=== PATIENT | male | born 1975 | race Caucasian/White ===

== ENCOUNTER → 2021-02-09 08:26 | Outpatient (BNVA) | payer MEDICARE, SELFPAY | PROVIDERS: Visit Provider Internal Medicine | DX: M06.9 Rheumatoid arthritis, unspecified (principal); M81.0 Age-related osteoporosis without current pathological fracture; R06.00 Dyspnea, unspecified; Z79.899 Other long term (current) drug therapy; Z11.59 Encounter for screening for other viral diseases; Z11.1 Encounter for screening for respiratory tuberculosis; Z87.891 Personal history of nicotine dependence | CPT/HCPCS: 36415; 71046; 73120; 73560; 80053; 81003; 85025; 85651; 86140; 86200; 86431; 86480; 86704; 86803; 87340; 99204 ==

== ENCOUNTER 2021-02-09 10:14 | Outpatient (CLI) | payer MEDICARE, SELFPAY ==
--- NOTE | 2021-02-09 10:23 | XR_ITS ---
WS: [email or web address] Exam: XR hand RT 2V 52779 Date/Time of Exam: 02/09/2021 10:30 AM Reason For Exam: M81.0 - Age-related osteoporosis without current patholog... No fracture or dislocation. Minimal degenerative change in the IP joints. Old scaphoid fracture with a single orthopedic screw in place. Plate and screw fixation of a healed fracture of the distal radiu s. Degenerative changes in the intercarpal joints. No soft tissue foreign bodies are seen. XR/XR hand RT 2V [id number] IMPRESSION: 1. Degenerative changes of the hand as noted above. 2. No fracture or dislocation. Old fractures of the scaphoid and distal radius.
--- NOTE | 2021-02-09 10:23 | XR_ITS ---
WS: [email or web address] Exam: XR hand LT 2V [id number] Date/Time of Exam: 02/09/2021 10:30 AM Reason For Exam: M81.0 - Age-related osteoporosis without current patholog... No fracture or dislocation. Joint structures are well-maintained. No soft tissue foreign bodies. XR/XR hand LT 2V 22489 IMPRESSION: 1. Negative left hand.
--- NOTE | 2021-02-09 10:23 | XR_ITS ---
WS: [email or web address] Exam: XR knee RT 1-2V 03100 Date/Time of Exam: 02/09/2021 10:30 AM Reason For Exam: M81.0 - Age-related osteoporosis without current patholog... No fracture or dislocation noted. Articular relationships are intact. No joint effusion. XR/XR knee RT 1-2V 46475 Impression: Normal right knee Kellgren-Raymond Classification: 0
--- NOTE | 2021-02-09 10:23 | XR_ITS ---
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 The lungs are hyperinflated and clear. Normal cardiomediastinal structures. No pleural effusions. Old healed single high-grade compression fracture of the lower T-spine noted without obvious posterior d isplacement. XR/XR chest 2V* [id number] IMPRESSION: 1. No acute cardiopulmonary finding.
--- NOTE | 2021-02-09 10:23 | XR_ITS ---
WS: [email or web address] Exam: XR knee LT 1-2V 05040 Date/Time of Exam: 02/09/2021 10:30 AM Reason For Exam: M81.0 - Age-related osteoporosis without current patholog... No fracture or dislocation noted. Articular relationships are intact. No joint effusion. XR/XR knee LT 1-2V 95354 Impression: Normal left knee Kellgren-Raymond Classification: 0
[2021-02-09 11:06] LABS: Add Urine Microscopic? NO; Charge for UA Resulting for Rev
[2021-02-09 11:16] LABS: Bilirubin Urine Neg (Negative); Blood Urine Neg (Negative); Glucose Urine UA Norm (Normal); Ketones Urine Negative (Negative); Leukocyte Esterase Urine Negative (Negative); Nitrate Urine Negative (Negative); Protein Urine Neg (Negative); Urine Appearance Clear (CLEAR); Urine Color Yellow (Yellow); Urobilinogen Urine Norm (Negative); pH Urine 7 (5-7)
[2021-02-09 11:20] LABS: Basophils # 0.1 10^3/uL (0.0-0.1); Eosinophils # 0.2 10^3/uL (0.0-0.8); Eosinophils % 2.4 %; Hemoglobin 15.4 g/dL (11.7-16.6); Lymphocytes # 0.9 10^3/uL (0.8-4.8); Lymphocytes % 10.9 %; Mean Corpuscular HGB Conc 33.5 g/dL (30.0-36.0); Mean Corpuscular Hemoglobin 34.6 pg (28.0-34.0); Mean Corpuscular Volume 103.4 fl (80-94); Monocytes # 0.7 10^3/uL (0.2-0.9); Neutrophils # 5.98 10^3/uL (1.8-7.7); Neutrophils % 75.9 %; Nucleated Red Blood Cells % 0 %; Platelet Count 223 10^3/cmm (130-400); Red Blood Count 4.45 10^6/uL (4.1-5.3); Red Cell Distribution Width 11.5 % (12.1-15.1); White Blood Count 7.9 10^3/uL (4.0-10.0)
[2021-02-09 11:44] LABS: Alanine Aminotransferase 9 U/L (0-41); Albumin Level 4.7 g/dL (3.5-5.2); Alkaline Phosphatase 61 IU/L (40-130); Anion Gap 18.2 (5-19); Aspartate Amino Transferase 14 U/L (0-40); Blood Urea Nitrogen 12 mg/dL (6-20); C Reactive Protein 0.6 mg/L (0.0-4.9); Calcium 8.6 mg/dL (8.5-10.5); Carbon Dioxide 23 mmol/L (22-29); Chloride 104 mmol/L (98-107); Globulin 1.8 g/dL (1.3-4.6); Glomerular Filtration Rate 90.8 mL/min (90-130); Glucose 86 mg/dL (65-115); Osmolality Calculated 291 mOsm/kg (285-295); Potassium 4.2 mmol/L (3.5-5.1); Sodium 141 mmol/L (136-145); Total Bilirubin 0.7 mg/dL (0.15-1.2); Total Protein 6.5 g/dL (6.6-8.7)
[2021-02-09 12:30] LABS: Hepatitis B Surface Antigen Non-Reactive (Nonreactive); Hepatitis C Virus Antibody Non-Reactive (Nonreactive)
[2021-02-09 12:33] LABS: Hepatitis B Core AB, Total Non-Reactive (Nonreactive)
[2021-02-10 13:18] LABS: Cyclic Citrullinated Peptide <16 UNITS
[2021-02-11 11:57] LABS: Erythrocyte Sedimentation Rate 2 mm/hr (0-10)
[2021-02-11 15:42] LABS: Quantiferon Mitogen >10.00 IU/mL; Quantiferon Nil 0.01 IU/mL; Quantiferon TB Gold NEGATIVE (NEGATIVE)
== END 2021-02-09 10:15 | disposition home or self-care (01) ==
PROVIDERS: Visit Provider Internal Medicine
DX: M81.0 Age-related osteoporosis without current pathological fracture (principal); R06.00 Dyspnea, unspecified; Z79.899 Other long term (current) drug therapy; Z11.59 Encounter for screening for other viral diseases; Z11.1 Encounter for screening for respiratory tuberculosis
CPT/HCPCS: 36415; 71046; 73120; 73560; 80053; 81003; 85025; 85651; 86140; 86200; 86431; 86480; 86704; 86803; 87340

== ENCOUNTER → 2021-03-19 10:24 | Outpatient (BNVA) | payer MEDICARE, SELFPAY | PROVIDERS: Visit Provider Internal Medicine | DX: M06.9 Rheumatoid arthritis, unspecified (principal); D75.89 Other specified diseases of blood and blood-forming organs; M81.0 Age-related osteoporosis without current pathological fracture; Z87.891 Personal history of nicotine dependence; Z79.899 Other long term (current) drug therapy | CPT/HCPCS: 99214 ==

== ENCOUNTER 2021-04-27 08:48 | Outpatient (CLI) | payer MEDICARE, SELFPAY ==
[2021-04-27 09:10] VITALS: BP 132/85; PULSE 70; RESP 18; TEMP 37.2; O2SAT 99
[2021-04-27 09:35] LABS: Basophils # 0.1 10^3/uL (0.0-0.1); Basophils % 0.8 %; Eosinophils # 0.2 10^3/uL (0.0-0.8); Eosinophils % 2.6 %; Hematocrit 42.3 % (42.0-52.0); Hemoglobin 14.3 g/dL (11.7-16.6); Lymphocytes # 0.7 10^3/uL (0.8-4.8); Lymphocytes % 9.1 %; Mean Corpuscular HGB Conc 33.8 g/dL (30.0-36.0); Mean Corpuscular Volume 100.7 fl (80-94); Monocytes # 0.6 10^3/uL (0.2-0.9); Monocytes % 8.1 %; Neutrophils # 5.94 10^3/uL (1.8-7.7); Neutrophils % 78.6 %; Nucleated Red Blood Cells % 0 %; Platelet Count 213 10^3/cmm (130-400); Red Cell Distribution Width 12.2 % (12.1-15.1); White Blood Count 7.6 10^3/uL (4.0-10.0)
[2021-04-27] MEDS: acetaminophen 325 mg Tablet 650 MG PO (09:38)
[2021-04-27] MEDS: sodium chloride 0.9% 250 ML 50 ML IV (09:38)
[2021-04-27] MEDS: diphenhydrAMINE 50 mg/mL SDV 1mL 25 MG IV (09:39)
[2021-04-27] MEDS: rituximab 1,000 MG in sodium chloride 0.9% 250 ML, primary tubing onc 1 EACH 90 MG IV (09:47)
[2021-04-27 10:07] LABS: Alanine Aminotransferase 9 U/L (0-41); Albumin Level 4.5 g/dL (3.5-5.2); Alkaline Phosphatase 65 IU/L (40-130); Blood Urea Nitrogen 15 mg/dL (6-20); Calcium 9.1 mg/dL (8.5-10.5); Carbon Dioxide 24 mmol/L (22-29); Chloride 106 mmol/L (98-107); Globulin 1.9 g/dL (1.3-4.6); Glomerular Filtration Rate 121.4 mL/min (90-130); Glucose 109 mg/dL (65-115); Osmolality Calculated 289 mOsm/kg (285-295); Sodium 139 mmol/L (136-145); Total Bilirubin 0.4 mg/dL (0.15-1.2); Total Protein 6.4 g/dL (6.6-8.7)
[2021-04-27 10:10] LABS: Anion Gap 13.4 (5-19); Aspartate Amino Transferase 16 U/L (0-40); Potassium 4.4 mmol/L (3.5-5.1)
[2021-04-27 10:16] VITALS: BP 122/73; PULSE 66; RESP 18; TEMP 37.2; O2SAT 99
[2021-04-27 10:53] VITALS: BP 124/73; PULSE 64; RESP 18; TEMP 37.4; O2SAT 99
[2021-04-27 11:56] VITALS: BP 122/78; PULSE 70; RESP 18; TEMP 37.1; O2SAT 98
== END 2021-04-27 08:49 | disposition home or self-care (01) ==
PROVIDERS: Referring Provider Internal Medicine; Visit Provider Internal Medicine Rheumatology
DX: M05.79 Rheumatoid arthritis with rheumatoid factor of multiple sites without organ or systems involvement (principal); Z79.899 Other long term (current) drug therapy
CPT/HCPCS: 80053; 85025; 86140; 96365; 96366; 96375; J1200; J2930; J7050; J9312

== ENCOUNTER 2021-05-11 08:41 | Outpatient (CLI) | payer MEDICARE, SELFPAY ==
[2021-05-11 09:05] VITALS: BP 124/85; PULSE 66; RESP 18; TEMP 37.1; O2SAT 99
[2021-05-11] MEDS: acetaminophen 325 mg Tablet 650 MG PO (09:23)
[2021-05-11] MEDS: sodium chloride 0.9% 250 ML 50 ML IV (09:25)
[2021-05-11] MEDS: diphenhydrAMINE 50 mg/mL SDV 1mL 25 MG IV (09:27)
[2021-05-11] MEDS: rituximab 1,000 MG in sodium chloride 0.9% 250 ML, primary tubing onc 1 EACH 90 MG IV (09:35)
[2021-05-11 09:57] VITALS: BP 112/70; PULSE 57; RESP 16; TEMP 37.3; O2SAT 99
[2021-05-11 10:33] VITALS: BP 113/73; PULSE 53; RESP 18; TEMP 37.1; O2SAT 99
[2021-05-11 11:34] VITALS: BP 107/67; PULSE 66; RESP 18; TEMP 37; O2SAT 98
== END 2021-05-11 08:42 | disposition home or self-care (01) ==
PROVIDERS: Referring Provider Internal Medicine; Visit Provider Internal Medicine Medical Oncology
DX: M05.79 Rheumatoid arthritis with rheumatoid factor of multiple sites without organ or systems involvement (principal)
CPT/HCPCS: 96365; 96366; 96375; J1200; J2930; J7050; J9312

== ENCOUNTER → 2021-07-29 12:33 | Outpatient (BNVA) | payer MEDICARE, SELFPAY | PROVIDERS: Visit Provider Otolaryngology | DX: M25.361 Other instability, right knee (principal); M25.561 Pain in right knee; Z87.09 Personal history of other diseases of the respiratory system; J34.2 Deviated nasal septum | CPT/HCPCS: 73560; 73565; 99203 ==

== ENCOUNTER 2021-08-12 06:00 | Outpatient (RCR) | payer MEDICARE, SELFPAY | END 2021-09-03 23:59 | disposition home or self-care (01) | LOC: SPT 06:00 | PROVIDERS: Referring Provider Orthopaedic Surgery; Visit Provider Orthopaedic Surgery | DX: M25.561 Pain in right knee (principal) | CPT/HCPCS: 97110; 97161 ==

== ENCOUNTER 2021-08-17 15:05 | Outpatient (CLI) | payer MEDICARE, SELFPAY ==
[2021-08-17 15:53] LABS: Basophils # 0.1 10^3/uL (0.0-0.1); Basophils % 0.8 %; Eosinophils # 0.2 10^3/uL (0.0-0.8); Eosinophils % 2.7 %; Hematocrit 40.8 % (42.0-52.0); Hemoglobin 14.7 g/dL (11.7-16.6); Lymphocytes % 15.8 %; Mean Corpuscular Hemoglobin 33.1 pg (28.0-34.0); Mean Corpuscular Volume 91.9 fl (80-94); Mean Platelet Volume 10.4 fL (7.4-10.4); Monocytes # 0.6 10^3/uL (0.2-0.9); Monocytes % 9.4 %; Neutrophils # 4.55 10^3/uL (1.8-7.7); Nucleated Red Blood Cells % 0 %; Platelet Count 224 10^3/cmm (130-400); Red Blood Count 4.44 10^6/uL (4.1-5.3); Red Cell Distribution Width 11.8 % (12.1-15.1); White Blood Count 6.4 10^3/uL (4.0-10.0)
[2021-08-17 16:18] LABS: Alanine Aminotransferase 12 U/L (0-41); Albumin Level 4.3 g/dL (3.5-5.2); Alkaline Phosphatase 57 IU/L (40-130); Anion Gap 15.6 (5-19); Aspartate Amino Transferase 17 U/L (0-40); Blood Urea Nitrogen 20 mg/dL (6-20); Calcium 8.9 mg/dL (8.5-10.5); Carbon Dioxide 22 mmol/L (22-29); Chloride 104 mmol/L (98-107); Globulin 2.1 g/dL (1.3-4.6); Glomerular Filtration Rate 90.8 mL/min (90-130); Glucose 110 mg/dL (65-115); Osmolality Calculated 289 mOsm/kg (285-295); Potassium 3.6 mmol/L (3.5-5.1); Sodium 138 mmol/L (136-145); Total Bilirubin 0.5 mg/dL (0.15-1.2); Total Protein 6.4 g/dL (6.6-8.7)
[2021-08-17 17:04] LABS: Erythrocyte Sedimentation Rate 1 mm/hr (0-10)
== END 2021-08-17 15:06 | disposition home or self-care (01) ==
PROVIDERS: Visit Provider Internal Medicine
DX: M06.9 Rheumatoid arthritis, unspecified (principal)
CPT/HCPCS: 36415; 80053; 85025; 85651; 86140

== ENCOUNTER → 2021-09-01 14:51 | Outpatient (BNVA) | payer MEDICARE, SELFPAY | PROVIDERS: Visit Provider Internal Medicine | DX: M06.9 Rheumatoid arthritis, unspecified (principal); M25.361 Other instability, right knee | CPT/HCPCS: 99214 ==

== ENCOUNTER 2021-10-05 10:36 | Outpatient (CLI) | payer MEDICARE, SELFPAY ==
[2021-10-05 11:03] VITALS: BP 104/72; PULSE 66; RESP 18; TEMP 36.8; O2SAT 97
[2021-10-05 11:08] LABS: Basophils # 0.1 10^3/uL (0.0-0.1); Basophils % 1.4 %; Eosinophils # 0.3 10^3/uL (0.0-0.8); Eosinophils % 4.8 %; Hematocrit 44.1 % (42.0-52.0); Hemoglobin 15.3 g/dL (11.7-16.6); Lymphocytes # 1.1 10^3/uL (0.8-4.8); Lymphocytes % 18.6 %; Mean Corpuscular HGB Conc 34.7 g/dL (30.0-36.0); Mean Corpuscular Hemoglobin 32.6 pg (28.0-34.0); Mean Platelet Volume 10.1 fL (7.4-10.4); Monocytes # 0.7 10^3/uL (0.2-0.9); Monocytes % 11.1 %; Neutrophils # 3.71 10^3/uL (1.8-7.7); Neutrophils % 63.1 %; Nucleated Red Blood Cells % 0 %; Platelet Count 220 10^3/cmm (130-400); Red Blood Count 4.69 10^6/uL (4.1-5.3); Red Cell Distribution Width 11.9 % (12.1-15.1); White Blood Count 5.9 10^3/uL (4.0-10.0)
[2021-10-05] MEDS: sodium chloride 0.9% 250 ML 50 ML IV (11:24)
[2021-10-05] MEDS: acetaminophen 325 mg Tablet 650 MG PO (11:25)
[2021-10-05] MEDS: diphenhydrAMINE 50 mg/mL SDV 1mL 25 MG IVP (11:26)
[2021-10-05 11:28] LABS: Alanine Aminotransferase 26 U/L (0-41); Albumin Level 4.2 g/dL (3.5-5.2); Alkaline Phosphatase 80 IU/L (40-130); Anion Gap 14.1 (5-19); Aspartate Amino Transferase 23 U/L (0-40); Blood Urea Nitrogen 18 mg/dL (6-20); Calcium 8.9 mg/dL (8.5-10.5); Carbon Dioxide 24 mmol/L (22-29); Chloride 105 mmol/L (98-107); Glomerular Filtration Rate 90.4 mL/min (90-130); Glucose 116 mg/dL (65-115); Osmolality Calculated 291 mOsm/kg (285-295); Potassium 4.1 mmol/L (3.5-5.1); Sodium 139 mmol/L (136-145); Total Bilirubin 0.5 mg/dL (0.15-1.2); Total Protein 6.2 g/dL (6.6-8.7)
[2021-10-05] MEDS: rituximab 1,000 MG in sodium chloride 0.9% 250 ML, primary tubing onc 1 EACH 90 MG IV (11:33)
[2021-10-05 12:01] VITALS: BP 114/80; PULSE 57; RESP 18; TEMP 36.7; O2SAT 97
[2021-10-05 12:34] VITALS: BP 115/75; PULSE 61; RESP 18; TEMP 36.7; O2SAT 99
[2021-10-05 13:36] VITALS: BP 102/64; PULSE 66; RESP 18; TEMP 36.6; O2SAT 97
== END 2021-10-05 10:37 | disposition home or self-care (01) ==
PROVIDERS: Referring Provider Internal Medicine; Visit Provider Internal Medicine
DX: M05.79 Rheumatoid arthritis with rheumatoid factor of multiple sites without organ or systems involvement (principal); Z79.899 Other long term (current) drug therapy
CPT/HCPCS: 80053; 85025; 86140; 96365; 96366; 96375; J1200; J2930; J7050; J9312

== ENCOUNTER 2021-10-19 10:41 | Outpatient (CLI) | payer MEDICARE, SELFPAY ==
[2021-10-19 10:48] VITALS: BP 119/78; PULSE 77; RESP 18; TEMP 36.7; O2SAT 98
[2021-10-19] MEDS: sodium chloride 0.9% 250 ML 50 ML IV (11:36)
[2021-10-19] MEDS: acetaminophen 325 mg Tablet 650 MG PO (11:37)
[2021-10-19] MEDS: diphenhydrAMINE 50 mg/mL SDV 1mL 25 MG IVP (11:38)
[2021-10-19] MEDS: rituximab 1,000 MG in sodium chloride 0.9% 250 ML, primary tubing onc 1 EACH 90 MG IV (11:45)
[2021-10-19 12:15] VITALS: BP 100/63; PULSE 60; RESP 18; TEMP 36.8; O2SAT 97
[2021-10-19 12:43] VITALS: BP 114/69; PULSE 59; RESP 18; TEMP 36.6; O2SAT 98
[2021-10-19 13:55] VITALS: BP 112/69; PULSE 67; RESP 18; TEMP 36.7; O2SAT 97
== END 2021-10-19 10:42 | disposition home or self-care (01) ==
PROVIDERS: Visit Provider Internal Medicine
DX: M05.79 Rheumatoid arthritis with rheumatoid factor of multiple sites without organ or systems involvement (principal)
CPT/HCPCS: 96365; 96366; 96375; J1200; J2930; J7050; J9312

== ENCOUNTER → 2021-12-14 14:35 | Outpatient (BNVA) | payer MEDICARE, SELFPAY | PROVIDERS: Visit Provider Internal Medicine | DX: M06.9 Rheumatoid arthritis, unspecified (principal); M25.361 Other instability, right knee | CPT/HCPCS: 99214 ==

== ENCOUNTER 2022-02-10 08:56 | Outpatient (CLI) | payer MEDICARE, SELFPAY ==
[2022-02-10 09:01] VITALS: BP 104/71; PULSE 72; RESP 16; TEMP 36.7; O2SAT 98
[2022-02-10 09:32] LABS: Basophils # 0.1 10^3/uL (0.0-0.1); Basophils % 1.1 %; Eosinophils # 0.2 10^3/uL (0.0-0.8); Eosinophils % 4.3 %; Hematocrit 43.8 % (42.0-52.0); Hemoglobin 14.4 g/dL (11.7-16.6); Lymphocytes # 0.9 10^3/uL (0.8-4.8); Lymphocytes % 15.6 %; Mean Corpuscular HGB Conc 32.9 g/dL (30.0-36.0); Mean Corpuscular Hemoglobin 32.3 pg (28.0-34.0); Mean Corpuscular Volume 98.2 fl (80-94); Mean Platelet Volume 9.7 fL (7.4-10.4); Monocytes # 0.4 10^3/uL (0.2-0.9); Monocytes % 7.9 %; Neutrophils # 3.93 10^3/uL (1.8-7.7); Neutrophils % 70.6 %; Nucleated Red Blood Cells % 0 %; Platelet Count 244 10^3/cmm (130-400); Red Blood Count 4.46 10^6/uL (4.1-5.3); Red Cell Distribution Width 12.4 % (12.1-15.1); White Blood Count 5.6 10^3/uL (4.0-10.0)
[2022-02-10] MEDS: acetaminophen 325 mg Tablet 650 MG PO (09:43)
[2022-02-10] MEDS: sodium chloride 0.9% 250 ML 50 ML IV (09:43)
[2022-02-10] MEDS: diphenhydrAMINE 50 mg/mL SDV 1mL 25 MG IVP (09:45)
[2022-02-10] MEDS: rituximab 1,000 MG in sodium chloride 0.9% 250 ML, primary tubing onc 1 EACH 37.5 MG IV (09:55)
[2022-02-10 10:14] LABS: Alanine Aminotransferase 22 U/L (0-41); Albumin Level 4.2 g/dL (3.5-5.2); Alkaline Phosphatase 72 U/L (40-130); Anion Gap 13.6 (5-19); Aspartate Amino Transferase 19 U/L (0-40); Blood Urea Nitrogen 12 mg/dL (6-20); Calcium 8.8 mg/dL (8.5-10.5); Carbon Dioxide 23 mmol/L (22-29); Chloride 106 mmol/L (98-107); Glomerular Filtration Rate 80.1 mL/min (90-130); Glucose 135 mg/dL (65-115); Osmolality Calculated 290 mOsm/kg (285-295); Potassium 3.6 mmol/L (3.5-5.1); Sodium 139 mmol/L (136-145); Total Bilirubin 0.3 mg/dL (0.15-1.2); Total Protein 6.2 g/dL (6.6-8.7)
[2022-02-10 10:24] VITALS: BP 99/65; PULSE 62; RESP 16; TEMP 36.7; O2SAT 99
[2022-02-10 10:57] VITALS: BP 109/74; PULSE 60; RESP 16; TEMP 36.4; O2SAT 98
[2022-02-10 11:28] VITALS: BP 111/73; PULSE 61; RESP 16; TEMP 36.8; O2SAT 99
[2022-02-10 13:34] VITALS: BP 114/74; PULSE 79; RESP 16; TEMP 36.9; O2SAT 97
== END 2022-02-10 08:57 | disposition home or self-care (01) ==
PROVIDERS: Referring Provider Internal Medicine; Visit Provider Neurological Surgery
DX: M06.9 Rheumatoid arthritis, unspecified (principal); M81.0 Age-related osteoporosis without current pathological fracture; M25.361 Other instability, right knee
CPT/HCPCS: 80053; 85025; 86140; J1200; J2930; J7050; J9312

== ENCOUNTER 2022-02-24 08:39 | Outpatient (CLI) | payer MEDICARE, SELFPAY ==
[2022-02-24 08:45] VITALS: BP 109/71; PULSE 76; RESP 18; TEMP 37.1; O2SAT 99
[2022-02-24] MEDS: sodium chloride 0.9% 250 ML 50 ML IV (09:11)
[2022-02-24] MEDS: acetaminophen 325 mg Tablet 650 MG PO (09:11)
[2022-02-24] MEDS: diphenhydrAMINE 50 mg/mL SDV 1mL 25 MG IVP (09:12)
[2022-02-24] MEDS: rituximab 1,000 MG in sodium chloride 0.9% 250 ML, primary tubing onc 1 EACH 37.5 MG IV (09:21)
[2022-02-24 10:17] VITALS: BP 112/70; PULSE 61; RESP 18; TEMP 36.9; O2SAT 99
[2022-02-24 11:55] VITALS: BP 127/76; PULSE 61; RESP 16; TEMP 36.7; O2SAT 97
[2022-02-24 13:09] VITALS: BP 123/76; PULSE 70; RESP 16; TEMP 37.4; O2SAT 99
== END 2022-02-24 08:40 | disposition home or self-care (01) ==
LOC: ONCMED 08:39
PROVIDERS: PCP Family Medicine; Visit Provider Internal Medicine
DX: M05.79 Rheumatoid arthritis with rheumatoid factor of multiple sites without organ or systems involvement (principal)
CPT/HCPCS: 96365; 96366; 96375; J1200; J2930; J7050; J9312

== ENCOUNTER → 2022-05-31 12:50 | Outpatient (BNVA) | payer MEDICARE, SELFPAY | PROVIDERS: PCP Family Medicine; Visit Provider Internal Medicine | DX: M06.9 Rheumatoid arthritis, unspecified (principal); Z79.899 Other long term (current) drug therapy; M25.519 Pain in unspecified shoulder | CPT/HCPCS: 99213 ==

== ENCOUNTER 2022-06-01 14:53 | Outpatient (CLI) | payer MEDICARE, SELFPAY ==
[2022-06-01 15:35] LABS: Basophils # 0.1 10^3/uL (0.0-0.1); Basophils % 0.8 %; Eosinophils # 0.2 10^3/uL (0.0-0.8); Eosinophils % 2.1 %; Hematocrit 39.3 % (42.0-52.0); Hemoglobin 13.1 g/dL (11.7-16.6); Lymphocytes # 1.3 10^3/uL (0.8-4.8); Lymphocytes % 13.2 %; Mean Corpuscular HGB Conc 33.3 g/dL (30.0-36.0); Mean Corpuscular Hemoglobin 32.3 pg (28.0-34.0); Mean Corpuscular Volume 96.8 fl (80-94); Mean Platelet Volume 9.8 fL (7.4-10.4); Monocytes # 0.7 10^3/uL (0.2-0.9); Monocytes % 7.5 %; Neutrophils # 7.22 10^3/uL (1.8-7.7); Nucleated Red Blood Cells % 0 %; Platelet Count 275 10^3/cmm (130-400); Red Blood Count 4.06 10^6/uL (4.1-5.3); Red Cell Distribution Width 12.7 % (12.1-15.1); White Blood Count 9.5 10^3/uL (4.0-10.0)
[2022-06-01 16:03] LABS: Alanine Aminotransferase 11 U/L (0-41); Albumin Level 3.9 g/dL (3.5-5.2); Alkaline Phosphatase 54 U/L (40-130); Aspartate Amino Transferase 18 U/L (0-40); Blood Urea Nitrogen 12 mg/dL (6-20); Calcium 8.9 mg/dL (8.5-10.5); Carbon Dioxide 27 mmol/L (22-29); Chloride 105 mmol/L (98-107); Globulin 2.2 g/dL (1.3-4.6); Glomerular Filtration Rate 80.1 mL/min (90-130); Glucose 94 mg/dL (65-115); Osmolality Calculated 290 mOsm/kg (285-295); Sodium 140 mmol/L (136-145); Total Bilirubin 0.2 mg/dL (0.15-1.2); Total Protein 6.1 g/dL (6.6-8.7)
[2022-06-01 16:06] LABS: Erythrocyte Sedimentation Rate 1 mm/hr (0-10)
[2022-06-01 16:12] LABS: Anion Gap 11.7 (5-19); Potassium 3.7 mmol/L (3.5-5.1)
== END 2022-06-01 14:54 | disposition home or self-care (01) ==
LOC: LAB 14:55
PROVIDERS: PCP Family Medicine; Visit Provider Internal Medicine
DX: M06.9 Rheumatoid arthritis, unspecified (principal); M81.0 Age-related osteoporosis without current pathological fracture; Z79.899 Other long term (current) drug therapy
CPT/HCPCS: 36415; 80053; 85025; 85651; 86140

== ENCOUNTER 2022-06-08 15:56 | Outpatient (CLI) | payer MEDICARE, SELFPAY ==
--- NOTE | 2022-06-08 16:12 | XR_ITS ---
WS: [email or web address] XR shoulder LT min 2V* [id number] REASON FOR EXAM: M81.0 - Age-related osteoporosis without current patholog... FINDINGS: Old healed fracture of the distal clavicle. The left acromioclavicular joint is intact and somewhat widened. Mild subchondral sclerosis and osteo phytosis. Mild narrowing of the glenohumeral joint with moderate subchondral sclerosis and cystic change and os teophytosis of the glenoid and humeral head. Moderate subchondral sclerosis and cystic change in the biceps tuberosity. No soft tissue abnormality. 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 Moderate rotator cuff tendon arthropathy.
--- NOTE | 2022-06-08 16:12 | XR_ITS ---
WS: [email or web address] XR shoulder RT min 2V* [id number] REASON FOR EXAM: M81.0 - Age-related osteoporosis without current patholog... FINDINGS: No fracture or focal bone lesion. The acromioclavicular joint is intact and relatively well-preserved. Mild subchondral sclerosis and s mall osteophytosis. Glenohumeral joint is intact and relatively well-preserved. Moderate sclerosis in the biceps tuberosity. No soft tissue abnormality. XR/XR shoulder RT min 2V* [id number] IMPRESSION: Mild osteoarthritis in the acromioclavicular joint. Moderate rotator cuff tendon arthropathy.
== END 2022-06-08 15:57 | disposition home or self-care (01) ==
PROVIDERS: PCP Family Medicine; Visit Provider Internal Medicine
DX: M81.0 Age-related osteoporosis without current pathological fracture (principal); M06.9 Rheumatoid arthritis, unspecified; M25.519 Pain in unspecified shoulder; M19.012 Primary osteoarthritis, left shoulder
CPT/HCPCS: 73030

== ENCOUNTER 2022-07-01 10:00 | Oncology outpatient (recurring) (ONCR) | payer MEDICARE, SELFPAY ==
[2022-06-17] MEDS: sodium chloride 0.9% 250 ML 100 ML IV (11:50)
[2022-06-17] MEDS: acetaminophen 325 mg Tablet 650 MG PO (11:50)
[2022-06-17] MEDS: diphenhydrAMINE 50 mg/mL SDV 1mL 25 MG IVP (11:50)
[2022-06-17] MEDS: rituximab-abbs 1,000 MG in sodium chloride 0.9% 500 ML 60 MG IV (12:17)
[2022-06-17 12:20] VITALS: BP 95/60; PULSE 52; TEMP 37.2; O2SAT 99
[2022-06-17 12:50] VITALS: BP 91/56; PULSE 54; TEMP 37.4; O2SAT 99
[2022-06-17 13:25] VITALS: BP 97/62; PULSE 54; TEMP 36.8; O2SAT 99
[2022-06-17 13:56] VITALS: BP 98/61; PULSE 60; TEMP 36.9; O2SAT 99
[2022-06-17 16:07] VITALS: BP 99/58; PULSE 65; TEMP 37.3; O2SAT 99
== END 2022-07-04 23:59 | disposition home or self-care (01) ==
PROVIDERS: PCP Family Medicine; Visit Provider Internal Medicine
DX: Z53.9 Procedure and treatment not carried out, unspecified reason (principal)
CPT/HCPCS: 96375; 96413; 96415; J1200; J2930; J7040; J7050; Q5115

== ENCOUNTER → 2022-07-15 09:33 | Outpatient (BNVA) | payer MEDICARE, SELFPAY | PROVIDERS: PCP Family Medicine; Visit Provider Internal Medicine | DX: M25.512 Pain in left shoulder (principal) | CPT/HCPCS: 20605; 99213; J1030 ==

== ENCOUNTER → 2022-09-14 10:10 | Outpatient (BNVA) | payer MEDICARE, SELFPAY | PROVIDERS: PCP Family Medicine; Visit Provider Internal Medicine | DX: M06.9 Rheumatoid arthritis, unspecified (principal); M81.0 Age-related osteoporosis without current pathological fracture; M25.519 Pain in unspecified shoulder | CPT/HCPCS: 99214 ==

== ENCOUNTER 2022-10-12 10:39 | Oncology outpatient (recurring) (ONCR) | payer MEDICARE, SELFPAY ==
[2022-10-12] MEDS: sodium chloride 0.9% 250 ML 100 ML IV (11:42)
[2022-10-12] MEDS: acetaminophen 325 mg Tablet 650 MG PO (11:43)
[2022-10-12] MEDS: diphenhydrAMINE 50 mg/mL SDV 1mL 25 MG IVP (11:44)
[2022-10-12] MEDS: methylPREDNISolone sod succ 125 mg SDV IVP (11:47)
[2022-10-12] MEDS: rituximab 1,000 MG in sodium chloride 0.9% 500 ML 60 MG IV (12:09)
[2022-10-12 12:10] VITALS: BP 115/50; PULSE 50; RESP 17; TEMP 36.6; O2SAT 100
[2022-10-12 12:40] VITALS: BP 111/61; PULSE 57; RESP 17; TEMP 37; O2SAT 100
[2022-10-12 13:10] VITALS: BP 102/60; PULSE 58; RESP 17; TEMP 36.9; O2SAT 99
[2022-10-12 13:40] VITALS: BP 110/66; PULSE 69; RESP 17; TEMP 36.9; O2SAT 99
[2022-10-12 15:55] VITALS: BP 124/64; PULSE 63; RESP 16; TEMP 36.9; O2SAT 98
== END 2022-10-12 23:59 | disposition home or self-care (01) ==
PROVIDERS: PCP Family Medicine; Visit Provider Internal Medicine
DX: M06.9 Rheumatoid arthritis, unspecified
CPT/HCPCS: 96375; 96413; 96415; J1200; J2930; J7040; J7050; J9312

== ENCOUNTER 2022-10-26 10:00 | Oncology outpatient (recurring) (ONCR) | payer MEDICARE, SELFPAY ==
[2022-10-26] MEDS: acetaminophen 325 mg Tablet 650 MG PO (09:49)
[2022-10-26] MEDS: sodium chloride 0.9% 250 ML 100 ML IV (09:50)
[2022-10-26] MEDS: methylPREDNISolone sod succ 125 mg SDV IVP (09:51)
[2022-10-26] MEDS: diphenhydrAMINE 50 mg/mL SDV 1mL 25 MG IVP (09:55)
[2022-10-26] MEDS: rituximab 1,000 MG in sodium chloride 0.9% 500 ML 60 MG IV (10:16)
[2022-10-26 10:50] VITALS: BP 126/77; PULSE 55; RESP 16; TEMP 36.7; O2SAT 99
[2022-10-26 11:25] VITALS: BP 117/70; PULSE 60; RESP 16; TEMP 36.4; O2SAT 99
[2022-10-26 11:55] VITALS: BP 108/68; PULSE 60; RESP 16; TEMP 36.7; O2SAT 98
[2022-10-26 14:15] VITALS: BP 126/76; PULSE 74; RESP 16; TEMP 37.1; O2SAT 99
== END 2022-11-04 23:59 | disposition home or self-care (01) ==
PROVIDERS: PCP Family Medicine; Visit Provider Internal Medicine
DX: M05.79 Rheumatoid arthritis with rheumatoid factor of multiple sites without organ or systems involvement (principal); Z51.12 Encounter for antineoplastic immunotherapy
CPT/HCPCS: 96375; 96413; 96415; J1200; J2930; J7040; J7050; J9312

== ENCOUNTER → 2023-01-20 15:33 | Outpatient (BNVA) | payer MEDICARE, SELFPAY | PROVIDERS: PCP Family Medicine; Visit Provider Internal Medicine | DX: M06.9 Rheumatoid arthritis, unspecified (principal); M25.519 Pain in unspecified shoulder; Z79.899 Other long term (current) drug therapy | CPT/HCPCS: 36415; 80053; 85025; 85651; 86140; 99214 ==

== ENCOUNTER 2023-02-17 08:24 | Oncology outpatient (recurring) (ONCR) | payer MEDICARE, SELFPAY ==
[2023-02-17] MEDS: acetaminophen 325 mg Tablet 650 MG PO (09:14)
[2023-02-17] MEDS: sodium chloride 0.9% 250 ML 75 ML IV (09:14)
[2023-02-17] MEDS: diphenhydrAMINE 50 mg/mL SDV 1mL 25 MG IVP (09:17)
[2023-02-17] MEDS: methylPREDNISolone sod succ 125 mg SDV IVP (09:21)
[2023-02-17] MEDS: rituximab 1,000 MG in sodium chloride 0.9% 500 ML 70 MG IV (09:57)
[2023-02-17 10:00] VITALS: BP 102/67; PULSE 64; TEMP 36.7; O2SAT 99
[2023-02-17 11:00] VITALS: BP 109/71; PULSE 67; RESP 18; TEMP 36.7; O2SAT 98
[2023-02-17 13:00] VITALS: BP 108/67; PULSE 74; TEMP 36.7; O2SAT 98
== END 2023-03-06 23:59 | disposition home or self-care (01) ==
PROVIDERS: PCP Family Medicine; Visit Provider Internal Medicine
DX: M06.9 Rheumatoid arthritis, unspecified (principal)
CPT/HCPCS: 96375; 96413; 96415; J1200; J2930; J7040; J7050; J9312

== ENCOUNTER 2023-03-31 07:54 | Oncology outpatient (recurring) (ONCR) | payer MEDICARE, SELFPAY ==
[2023-03-31 08:21] VITALS: BP 108/67; PULSE 65; RESP 16; TEMP 36.8; O2SAT 96
[2023-03-31 08:30] VITALS: BMI 26.7
[2023-03-31 08:42] LABS: Basophils # 0.1 10^3/uL (0.0-0.1); Eosinophils # 0.3 10^3/uL (0.0-0.8); Eosinophils % 3.1 %; Hematocrit 41.9 % (37-53); Lymphocytes # 1.1 10^3/uL (0.8-4.8); Lymphocytes % 11.4 %; Mean Corpuscular HGB Conc 33.9 g/dL (30-55); Mean Corpuscular Hemoglobin 32.6 pg (27-33); Mean Corpuscular Volume 96.3 fl (82-101); Mean Platelet Volume 9.6 fL (7.4-10.4); Monocytes # 0.9 10^3/uL (0.2-0.9); Monocytes % 9.5 %; Nucleated Red Blood Cells % 0 %; Platelet Count 260 10^3/cmm (157-399); Red Blood Count 4.35 10^6/uL (3.85-5.65); White Blood Count 9.18 10^3/uL (3.29-11.43)
[2023-03-31] MEDS: sodium chloride 0.9% 250 ML 75 ML IV (09:33)
[2023-03-31] MEDS: acetaminophen 325 mg Tablet 650 MG PO (09:35)
[2023-03-31] MEDS: diphenhydrAMINE 50 mg/mL SDV 1mL 25 MG IVP (09:35)
[2023-03-31] MEDS: methylPREDNISolone sod succ 125 mg SDV IV (09:38)
[2023-03-31] MEDS: rituximab 1,000 MG in sodium chloride 0.9% 500 ML 75 MG IV (10:17)
[2023-03-31 10:54] VITALS: BP 110/67; PULSE 61; RESP 16; TEMP 36.8; O2SAT 99
[2023-03-31 11:28] VITALS: BP 101/63; PULSE 57; RESP 16; TEMP 36.9; O2SAT 95
[2023-03-31 11:59] VITALS: BP 99/65; PULSE 58; RESP 16; TEMP 36.9; O2SAT 96
[2023-03-31 13:22] VITALS: BP 121/73; PULSE 73; RESP 16; TEMP 36.8; O2SAT 98
[2023-03-31 13:43] VITALS: BP 121/73; PULSE 73; RESP 16; TEMP 36.8; O2SAT 98
== END 2023-04-06 23:59 | disposition home or self-care (01) ==
LOC: ONCMED 07:55
PROVIDERS: PCP Family Medicine; Visit Provider Internal Medicine
DX: M06.9 Rheumatoid arthritis, unspecified (principal)
CPT/HCPCS: 85025; 96375; 96413; 96415; J1200; J2930; J7040; J7050; J9312

== ENCOUNTER 2023-05-12 12:04 | Outpatient (CLI) | payer MEDICARE, SELFPAY ==
--- NOTE | 2023-05-12 12:08 | MR_ITS ---
WS: [email or web address] MRI LEFT SHOULDER HISTORY: L SHOULDER TENDINITIS COMPARISON: Radiograph 06/08/2022 TECHNIQUE: Multiplanar sequences of the shoulder joint are submitted. Mild AC joint arthritis. No marrow edema. Small erosions distal clavicle. No subacromial impingement. No subacromial or subdeltoid fluid. Normal position of the biceps tendon. No os acromion. No rotator cuff muscle atrophy or edema. Subscapularis tendon is thickened and intermediate signal. T here is no tear but there is moderate coracohumeral encroachment upon the subscapularis tendon. Gleno humeral joint is narrowed. Loss of cartilage involving the glenoid. There is a small central cyst in the posterior labrum. The anterior labrum is not identified. There is a focal area of low signal in t he glenohumeral joint adjacent to where the labrum should be. This could potentially be an avulsed la bral now within the glenohumeral joint. No joint effusion. There is also mild thickening of the axill farrukh pouch. IMPRESSION: 1. No rotator cuff tendon tear. No muscle edema or atrophy. 2. Tendinopathy in the distal subscapularis tendon. There is mild coracohumeral encroachment upon th e subscapularis tendon. 3. Mild AC joint arthritis. 4. Anterior labrum is not identified in its normal position. Suspect this labrum may be avulsed and is now within the glenohumeral joint. 5. Additional changes suspicious for glenohumeral joint arthropathy and adhesive capsulitis.
== END 2023-05-12 12:05 | disposition home or self-care (01) ==
LOC: RAD 12:04
PROVIDERS: PCP Family Medicine; Visit Provider Family Medicine
DX: M19.012 Primary osteoarthritis, left shoulder (principal); M67.88 Other specified disorders of synovium and tendon, other site
CPT/HCPCS: 73221

== ENCOUNTER 2023-10-05 08:00 | Oncology outpatient (recurring) (ONCR) | payer MEDICARE, SELFPAY ==
[2023-10-05 08:53] VITALS: BP 114/73; PULSE 63; RESP 16; TEMP 36.7; O2SAT 99
[2023-10-05] MEDS: sodium chloride 0.9% 250 ML 75 ML IV (08:54)
[2023-10-05 08:56] LABS: Basophils # 0.1 10^3/uL (0.0-0.1); Basophils % 0.9 %; Eosinophils # 0.3 10^3/uL (0.0-0.8); Eosinophils % 3.2 %; Hematocrit 42.5 % (37-53); Lymphocytes # 1.2 10^3/uL (0.8-4.8); Lymphocytes % 15.2 %; Mean Corpuscular HGB Conc 33.2 g/dL (30-55); Mean Corpuscular Hemoglobin 32.5 pg (27-33); Mean Corpuscular Volume 97.9 fl (82-101); Mean Platelet Volume 9.6 fL (7.4-10.4); Monocytes # 0.5 10^3/uL (0.2-0.9); Monocytes % 6.9 %; Neutrophils # 5.76 10^3/uL (1.8-7.7); Neutrophils % 73.4 %; Nucleated Red Blood Cells % 0 %; Platelet Count 270 10^3/cmm (157-399); Red Blood Count 4.34 10^6/uL (3.85-5.65); Red Cell Distribution Width 12.1 % (12.1-15.1); White Blood Count 7.84 10^3/uL (3.29-11.43)
[2023-10-05] MEDS: acetaminophen 325 mg Tablet 650 MG PO (08:57)
[2023-10-05] MEDS: diphenhydrAMINE 50 mg/mL SDV 1mL 25 MG IVP (08:58)
[2023-10-05] MEDS: methylPREDNISolone sod succ 125 mg/2 mL INJ IVP (09:01)
[2023-10-05 09:15] LABS: Alanine Aminotransferase 11 U/L (0-41); Albumin Level 4.1 g/dL (3.5-5.2); Alkaline Phosphatase 77 U/L (40-130); Aspartate Amino Transferase 16 U/L (0-40); Creatinine Clr Calc Pharmacy 104.1607; Globulin 2.1 g/dL (1.3-4.6); Glomerular Filtration Rate 89.7 mL/min (90-130); Total Bilirubin 0.2 mg/dL (0.15-1.2); Total Protein 6.2 g/dL (6.6-8.7)
[2023-10-05 09:30] VITALS: BP 119/74; PULSE 57; RESP 16; TEMP 36.9; O2SAT 98
[2023-10-05] MEDS: rituximab 1,000 MG in sodium chloride 0.9% 500 ML 70 MG IV (09:30)
[2023-10-05 10:00] VITALS: BP 107/66; PULSE 65; RESP 16; TEMP 36.8; O2SAT 97
[2023-10-05 10:30] VITALS: BP 112/68; PULSE 71; RESP 16; TEMP 36.8; O2SAT 98
[2023-10-05 11:00] VITALS: BP 108/70; PULSE 67; RESP 16; TEMP 36.4; O2SAT 95
[2023-10-05 12:43] VITALS: BP 115/74; PULSE 81; RESP 16; O2SAT 98
== END 2023-10-05 23:59 | disposition home or self-care (01) ==
PROVIDERS: Internal Medicine Rheumatology; PCP Family Medicine; Visit Provider Internal Medicine
DX: M06.9 Rheumatoid arthritis, unspecified (principal); Z79.69 Long term (current) use of other immunomodulators and immunosuppressants
CPT/HCPCS: 73030; 80076; 82565; 85025; 86140; 96375; 96413; 96415; J1200; J2919; J7040; J7050; J9312

== ENCOUNTER 2023-10-19 07:53 | Oncology outpatient (recurring) (ONCR) | payer MEDICARE, SELFPAY ==
[2023-10-19 08:09] VITALS: BP 115/76; PULSE 64; RESP 18; TEMP 36.5; O2SAT 99
[2023-10-19] MEDS: sodium chloride 0.9% 250 ML 75 ML IV (08:21)
[2023-10-19] MEDS: acetaminophen 325 mg Tablet 650 MG PO (08:22)
[2023-10-19] MEDS: diphenhydrAMINE 50 mg/mL SDV 1mL 25 MG IVP (08:22)
[2023-10-19] MEDS: methylPREDNISolone sod succ 125 mg/2 mL INJ IVP (08:26)
[2023-10-19] MEDS: rituximab 1,000 MG in sodium chloride 0.9% 500 ML 60 MG IV (08:54)
[2023-10-19 09:00] VITALS: BP 100/69; PULSE 54; RESP 18; TEMP 36.6; O2SAT 99
[2023-10-19 09:30] VITALS: BP 105/68; PULSE 63; RESP 18; TEMP 36.4; O2SAT 99
[2023-10-19 10:00] VITALS: BP 96/64; PULSE 58; RESP 18; TEMP 36.2; O2SAT 98
[2023-10-19 10:30] VITALS: BP 98/68; PULSE 71; RESP 18; TEMP 36.3; O2SAT 99
[2023-10-19 12:32] VITALS: BP 118/82; PULSE 69; RESP 16; TEMP 36.6; O2SAT 99
== END 2023-11-05 23:59 | disposition home or self-care (01) ==
PROVIDERS: PCP Family Medicine; Visit Provider Internal Medicine
DX: Z79.899 Other long term (current) drug therapy (principal); M06.9 Rheumatoid arthritis, unspecified
CPT/HCPCS: 96375; 96413; 96415; J1200; J2919; J7040; J7050; J9312

== ENCOUNTER → 2023-11-10 10:28 | Outpatient (BNVA) | payer MEDICARE, SELFPAY | PROVIDERS: PCP Family Medicine; Visit Provider Internal Medicine Rheumatology | DX: M06.9 Rheumatoid arthritis, unspecified (principal); Z79.899 Other long term (current) drug therapy; M05.79 Rheumatoid arthritis with rheumatoid factor of multiple sites without organ or systems involvement; J84.9 Interstitial pulmonary disease, unspecified; Z71.85 Encounter for immunization safety counseling | CPT/HCPCS: 99204 ==

== ENCOUNTER 2024-03-26 09:00 | Oncology outpatient (recurring) (ONCR) | payer MEDICARE, SELFPAY ==
[2024-03-12] MEDS: sodium chloride 0.9% 250 ML 75 ML IV (08:30)
[2024-03-12] MEDS: acetaminophen 325 mg Tablet 650 MG PO (08:31)
[2024-03-12] MEDS: methylPREDNISolone sod succ 125 mg/2 mL INJ IVP (08:31)
[2024-03-12] MEDS: diphenhydrAMINE 50 mg/mL SDV 1mL 25 MG IVP (08:39)
[2024-03-12 08:41] LABS: Basophils # 0.1 10^3/uL (0.0-0.1); Basophils % 0.8 %; Eosinophils # 0.4 10^3/uL (0.0-0.8); Eosinophils % 3.5 %; Hematocrit 52.2 % (37-53); Lymphocytes # 1.6 10^3/uL (0.8-4.8); Lymphocytes % 14.1 %; Mean Corpuscular HGB Conc 32.8 g/dL (30-55); Mean Corpuscular Hemoglobin 31.6 pg (27-33); Mean Corpuscular Volume 96.5 fl (82-101); Mean Platelet Volume 9.7 fL (7.4-10.4); Monocytes # 0.8 10^3/uL (0.2-0.9); Monocytes % 7.3 %; Neutrophils % 73.7 %; Nucleated Red Blood Cells % 0 %; Platelet Count 314 10^3/cmm (157-399); Red Blood Count 5.41 10^6/uL (3.85-5.65); Red Cell Distribution Width 12.8 % (12.1-15.1); White Blood Count 11.13 10^3/uL (3.29-11.43)
[2024-03-12 08:59] LABS: Alanine Aminotransferase 10 U/L (0-41); Albumin Level 4.3 g/dL (3.5-5.2); Alkaline Phosphatase 81 U/L (40-130); C Reactive Protein 3.6 mg/L (0.0-4.9); Globulin 2.6 g/dL (1.3-4.6); Glomerular Filtration Rate 89.7 mL/min (90-130); Total Bilirubin 0.6 mg/dL (0.15-1.2); Total Protein 6.9 g/dL (6.6-8.7)
[2024-03-12 09:13] LABS: Aspartate Amino Transferase 21 U/L (0-40)
[2024-03-12 09:19] VITALS: BP 129/85; PULSE 73; RESP 17; O2SAT 98
[2024-03-12] MEDS: rituximab 1,000 MG in sodium chloride 0.9% 500 ML 65 MG IV (09:19)
[2024-03-12 10:21] VITALS: BP 119/79; PULSE 77; O2SAT 98
[2024-03-12 10:50] VITALS: BP 117/72; PULSE 84; RESP 16; O2SAT 95
[2024-03-12 12:24] VITALS: BP 115/76; PULSE 73; RESP 17; TEMP 36.3; O2SAT 97
[2024-03-26] VITALS (7 sets, daily range): BP systolic 103–125; BP diastolic 69–79; PULSE 55–74; RESP 6–17; TEMP 36.5–37.1; O2SAT 97–98
[2024-03-26] MEDS: diphenhydrAMINE 50 mg/mL SDV 1mL 25 MG IVP (10:13)
[2024-03-26] MEDS: acetaminophen 325 mg Tablet 650 MG PO (10:14)
[2024-03-26] MEDS: rituximab 1,000 MG in sodium chloride 0.9% 500 ML 70 MG IV (10:46)
== END 2024-04-06 23:59 | disposition home or self-care (01) ==
PROVIDERS: Internal Medicine Rheumatology; PCP Family Medicine; Visit Provider Internal Medicine
DX: Z53.9 Procedure and treatment not carried out, unspecified reason; M05.9 Rheumatoid arthritis with rheumatoid factor, unspecified; Z79.899 Other long term (current) drug therapy
CPT/HCPCS: 80076; 82565; 85025; 86140; 96375; 96413; 96415; J1200; J2919; J7040; J7050; J9312

== ENCOUNTER → 2024-05-03 15:32 | Outpatient (BNVA) | payer MEDICARE, SELFPAY | PROVIDERS: PCP Family Medicine; Visit Provider Family Medicine | DX: J84.9 Interstitial pulmonary disease, unspecified (principal) | CPT/HCPCS: 71046 ==

== ENCOUNTER → 2024-05-10 10:37 | Outpatient (BNVA) | payer MEDICARE, SELFPAY | PROVIDERS: PCP Family Medicine; Visit Provider Internal Medicine Rheumatology | DX: M05.79 Rheumatoid arthritis with rheumatoid factor of multiple sites without organ or systems involvement (principal); J84.9 Interstitial pulmonary disease, unspecified; Z79.899 Other long term (current) drug therapy; Z71.85 Encounter for immunization safety counseling; J40 Bronchitis, not specified as acute or chronic | CPT/HCPCS: 99215 ==

== ENCOUNTER 2024-06-05 16:01 | Outpatient (CLI) | payer MEDICARE, SELFPAY ==
--- NOTE | 2024-06-05 16:15 | CTR_ITS ---
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 Radiation optimization: All CT scans at this facility use at least one of these dose optimization techniques: automated exposure control; mA and/or kV adjustment per patient size (includes targeted exams where dose is matched to clinical indication); or iterative reconstruction. COMPARISON: CR XR chest 2V* [id number] 05/03/2024 3:36 PM RADIATION DOSE METRICS: Total DLP (mGy-cm): 314.21 FINDINGS: Lungs: Unremarkable. No consolidation. No masses. Pleural spaces: Unremarkable. No pneumothorax. No pleural effusion. Heart: Unremarkable. No cardiomegaly. No pericardial effusion. Coronary arteries: No coronary artery calcification. Lymph nodes: Unremarkable. No enlarged lymph nodes. Vasculature: Unremarkable. No aortic aneurysm. Bones/joints: Unremarkable. No acute fracture. Stable compression of a lower thoracic vertebral body. Soft tissues: Unremarkable. CT/CT chest con [id number] IMPRESSION: No acute findings.
== END 2024-06-05 16:02 | disposition home or self-care (01) ==
LOC: RAD 16:02
PROVIDERS: PCP Internal Medicine Rheumatology; Visit Provider Internal Medicine Rheumatology
DX: Z79.899 Other long term (current) drug therapy (principal); J40 Bronchitis, not specified as acute or chronic; R93.7 Abnormal findings on diagnostic imaging of other parts of musculoskeletal system
CPT/HCPCS: 71250

== ENCOUNTER 2024-07-25 10:30 | Oncology outpatient (recurring) (ONCR) | payer MEDICARE, SELFPAY ==
[2024-07-25] MEDS: methylPREDNISolone sod succ 125 mg/2 mL INJ IVP (12:04)
[2024-07-25] MEDS: diphenhydrAMINE 50 mg/mL SDV 1mL 25 MG IVP (12:05)
[2024-07-25] MEDS: sodium chloride 0.9% 250 ML 75 ML IV (12:05)
[2024-07-25] MEDS: acetaminophen 325 mg Tablet 650 MG PO (12:14)
[2024-07-25 12:31] LABS: Basophils # 0.1 10^3/uL (0.0-0.1); Eosinophils # 0.1 10^3/uL (0.0-0.8); Hematocrit 44.8 % (37-53); Lymphocytes # 0.9 10^3/uL (0.8-4.8); Lymphocytes % 12.8 %; Mean Corpuscular HGB Conc 33.5 g/dL (30-55); Mean Corpuscular Hemoglobin 31.8 pg (27-33); Mean Corpuscular Volume 95.1 fl (82-101); Monocytes # 0.7 10^3/uL (0.2-0.9); Monocytes % 10.5 %; Neutrophils # 5.09 10^3/uL (1.8-7.7); Neutrophils % 73.3 %; Nucleated Red Blood Cells % 0 %; Platelet Count 288 10^3/cmm (157-399); Red Blood Count 4.71 10^6/uL (3.85-5.65); Red Cell Distribution Width 12.3 % (12.1-15.1); White Blood Count 6.95 10^3/uL (3.29-11.43)
[2024-07-25 12:50] VITALS: BP 112/71; PULSE 64; RESP 17; TEMP 37.1; O2SAT 97
[2024-07-25] MEDS: rituximab 1,000 MG in sodium chloride 0.9% 500 ML 35 MG IV (12:54)
[2024-07-25 13:38] LABS: Alanine Aminotransferase 9 U/L (0-41); Albumin Level 4.1 g/dL (3.5-5.2); Alkaline Phosphatase 72 U/L (40-130); Aspartate Amino Transferase 15 U/L (0-40); Blood Urea Nitrogen 16 mg/dL (6-20); Calcium 8.7 mg/dL (8.5-10.5); Carbon Dioxide 26 mmol/L (22-29); Chloride 106 mmol/L (98-107); Creatinine Clr Calc Pharmacy 101.6127; Globulin 2.1 g/dL (1.3-4.6); Glomerular Filtration Rate 89.7 mL/min (90-130); Glucose 120 mg/dL (65-115); Osmolality Calculated 294 mOsm/kg (285-295); Sodium 141 mmol/L (136-145); Total Bilirubin 0.4 mg/dL (0.15-1.2); Total Protein 6.2 g/dL (6.6-8.7)
[2024-07-25 13:40] VITALS: BP 111/68; PULSE 66; RESP 16; TEMP 36.9; O2SAT 98
[2024-07-25 14:13] VITALS: BP 115/68; PULSE 76; RESP 16; TEMP 36.7; O2SAT 98
[2024-07-25 14:45] VITALS: BP 111/72; PULSE 74; RESP 16; TEMP 36.8; O2SAT 98
[2024-07-25 16:24] VITALS: BP 129/77; PULSE 80; RESP 16; TEMP 36.8; O2SAT 98
== END 2024-08-04 23:59 | disposition home or self-care (01) ==
PROVIDERS: PCP Family Medicine; Visit Provider Internal Medicine Rheumatology
DX: M05.9 Rheumatoid arthritis with rheumatoid factor, unspecified (principal); Z79.620 Long term (current) use of immunosuppressive biologic; J84.9 Interstitial pulmonary disease, unspecified
CPT/HCPCS: 36415; 80053; 85025; 86140; 96375; 96413; 96415; J1200; J2919; J7040; J7050; J9312; J9999

== ENCOUNTER 2024-08-07 09:59 | Oncology outpatient (recurring) (ONCR) | payer MEDICARE, SELFPAY ==
[2024-08-07 10:33] VITALS: BP 109/70; PULSE 68; RESP 17; TEMP 36.8; O2SAT 98
[2024-08-07] MEDS: acetaminophen 325 mg Tablet 650 MG PO (10:47)
[2024-08-07] MEDS: sodium chloride 0.9% 250 ML 75 ML IV (10:48)
[2024-08-07] MEDS: diphenhydrAMINE 50 mg/mL SDV 1mL 25 MG IVP (10:55)
[2024-08-07] MEDS: methylPREDNISolone sod succ 125 mg/2 mL INJ IVP (10:57)
[2024-08-07] MEDS: sodium chloride 0.9% 500 ML 200 ML IV (11:14)
[2024-08-07 11:24] LABS: Basophils # 0.1 10^3/uL (0.0-0.1); Basophils % 0.9 %; Eosinophils # 0.4 10^3/uL (0.0-0.8); Eosinophils % 4.2 %; Hematocrit 45.7 % (37-53); Lymphocytes % 10.3 %; Mean Corpuscular HGB Conc 32.8 g/dL (30-55); Mean Corpuscular Hemoglobin 31.8 pg (27-33); Mean Corpuscular Volume 96.8 fl (82-101); Mean Platelet Volume 9.8 fL (7.4-10.4); Monocytes # 0.8 10^3/uL (0.2-0.9); Neutrophils # 6.92 10^3/uL (1.8-7.7); Neutrophils % 75.2 %; Nucleated Red Blood Cells % 0 %; Platelet Count 236 10^3/cmm (157-399); Red Blood Count 4.72 10^6/uL (3.85-5.65); Red Cell Distribution Width 12.1 % (12.1-15.1); White Blood Count 9.21 10^3/uL (3.29-11.43)
[2024-08-07 11:35] VITALS: BP 109/70; PULSE 65; RESP 17; TEMP 36.8; O2SAT 98
[2024-08-07] MEDS: rituximab 1,000 MG in sodium chloride 0.9% 500 ML 70 MG IV (11:36)
[2024-08-07 12:09] VITALS: BP 109/70; PULSE 55; TEMP 36.6; O2SAT 99
[2024-08-07 12:40] VITALS: BP 101/63; PULSE 61; RESP 16; TEMP 37.1; O2SAT 95
[2024-08-07 13:10] VITALS: BP 101/59; PULSE 70; RESP 17; TEMP 36.9; O2SAT 96
[2024-08-07 15:05] VITALS: BP 105/67; PULSE 65; RESP 16; TEMP 36.8; O2SAT 97
== END 2024-09-03 23:59 | disposition home or self-care (01) ==
PROVIDERS: PCP Family Medicine; Visit Provider Internal Medicine Rheumatology
DX: M05.79 Rheumatoid arthritis with rheumatoid factor of multiple sites without organ or systems involvement (principal); Z79.620 Long term (current) use of immunosuppressive biologic
CPT/HCPCS: 85025; 96375; 96413; 96415; J1200; J2919; J7040; J7050; J9312; J9999

== ENCOUNTER 2024-11-28 08:01 | Oncology outpatient (recurring) (ONCR) | payer MEDICARE, SELFPAY ==
[2024-11-28 08:17] VITALS: BP 149/84; PULSE 74; TEMP 36.5; O2SAT 98
[2024-11-28 08:50] LABS: Hematocrit 41.1 % (37-53); Hemoglobin 13.90 g/dL (11.27-16.99); Mean Corpuscular HGB Conc 33.8 g/dL (30-55); Mean Corpuscular Hemoglobin 31.5 pg (27-33); Mean Corpuscular Volume 93.2 fl (82-101); Nucleated Red Blood Cells % 0 %; Platelet Count 246 10^3/cmm (157-399); Red Blood Count 4.41 10^6/uL (3.85-5.65); White Blood Count 7.41 10^3/uL (3.29-11.43)
[2024-11-28] MEDS: diphenhydrAMINE 50 mg/mL SDV 1mL 25 MG IVP (08:58)
[2024-11-28] MEDS: methylPREDNISolone sod succ 125 mg/2 mL INJ IVP (09:04)
[2024-11-28 13:05] VITALS: BP 139/82; PULSE 81; RESP 16; TEMP 36.8; O2SAT 99
== END 2024-12-04 23:59 | disposition home or self-care (01) ==
PROVIDERS: PCP Family Medicine; Visit Provider Internal Medicine Rheumatology
DX: M05.79 Rheumatoid arthritis with rheumatoid factor of multiple sites without organ or systems involvement (principal); Z79.899 Other long term (current) drug therapy
CPT/HCPCS: 85025; 96375; 96413; 96415; J1200; J2919; J7040; J7050; J9312; J9999

== ENCOUNTER 2024-12-12 07:59 | Oncology outpatient (recurring) (ONCR) | payer MEDICARE, SELFPAY ==
[2024-12-12 08:21] LABS: Hematocrit 41.3 % (37-53); Hemoglobin 13.80 g/dL (11.27-16.99); Mean Corpuscular HGB Conc 33.4 g/dL (30-55); Mean Corpuscular Hemoglobin 31.5 pg (27-33); Mean Corpuscular Volume 94.3 fl (82-101); Nucleated Red Blood Cells % 0 %; Platelet Count 276 10^3/cmm (157-399); Red Blood Count 4.38 10^6/uL (3.85-5.65); White Blood Count 9.62 10^3/uL (3.29-11.43)
[2024-12-12 08:22] VITALS: BP 121/79; PULSE 73; TEMP 36.6; O2SAT 97
[2024-12-12] MEDS: diphenhydrAMINE 50 mg/mL SDV 1mL 25 MG IVP (08:48)
[2024-12-12] MEDS: methylPREDNISolone sod succ 125 mg/2 mL INJ IVP (08:54)
[2024-12-12 09:30] VITALS: BP 105/68; PULSE 61; RESP 16; TEMP 36.8; O2SAT 98
[2024-12-12 10:00] VITALS: BP 117/73; PULSE 66; RESP 16; TEMP 36.9; O2SAT 99
[2024-12-12 10:30] VITALS: BP 120/75; PULSE 75; RESP 16; TEMP 36.6; O2SAT 99
[2024-12-12 12:42] VITALS: BP 129/76; PULSE 89; RESP 17; TEMP 36.8; O2SAT 98
== END 2025-01-04 23:59 | disposition home or self-care (01) ==
PROVIDERS: PCP Family Medicine; Visit Provider Internal Medicine Rheumatology
DX: Z53.9 Procedure and treatment not carried out, unspecified reason; M05.79 Rheumatoid arthritis with rheumatoid factor of multiple sites without organ or systems involvement; Z79.899 Other long term (current) drug therapy; Z79.620 Long term (current) use of immunosuppressive biologic
CPT/HCPCS: 85025; 96375; 96413; 96415; J1200; J2919; J7040; J7050; J9312; J9999

== ENCOUNTER → 2025-03-04 14:20 | Outpatient (BNVA) | payer MEDICARE, SELFPAY | PROVIDERS: PCP Family Medicine; Visit Provider Internal Medicine Rheumatology | DX: M05.79 Rheumatoid arthritis with rheumatoid factor of multiple sites without organ or systems involvement (principal); J84.9 Interstitial pulmonary disease, unspecified; Z79.899 Other long term (current) drug therapy; Z71.85 Encounter for immunization safety counseling; J40 Bronchitis, not specified as acute or chronic | CPT/HCPCS: 36415; 80076; 82306; 82565; 85025; 85651; 86140; 86480; 86704; 86803; 87340; 99214 ==